=== PATIENT | female | born 1955 | race Caucasian/White ===

== ENCOUNTER → 2019-02-24 | Outpatient (CLI) | payer OTHER ==
[~2019-02-24] MED LIST: LEVSOD75 PO
== END | disposition home or self-care (01) ==
LOC: LAB SHORT 12:12 → PLD 12:12
DX: D48.5 Neoplasm of uncertain behavior of skin (principal)
CPT/HCPCS: 88305

== ENCOUNTER 2020-05-26 06:52 | Day surgery (SDC) | payer MEDICARE ==
[~2020-05-26] VITALS: Ht 165.1 cm; Wt 61.0 kg
[~2020-05-26 06:52] MED LIST changes: +ALORA1 EA11; +CONEST.625; +Estrace Vagin42.5 GM; +HYDACE10B
--- NOTE | 2020-05-26 08:37 | NUR ---
05/26/20 0837 Sridevi Hernández BUPIVACAINE 0.5% 30MLS MIXED W/ 0.15 ML EPI TO MAKE BUPIVACAINE 0.5% 1:200,[address] FREDERICK PER ORDER.
--- NOTE | 2020-05-26 10:19 | NUR ---
05/26/20 1019 Loren Hoffman PT C/O 01/12 PAIN IN LEFT WLBOW, HOWEVER PT ALSO EXPRESSES READINESS TO GO HOME. PT MEDICATED WITH PO PERCOCET AND IV FENTANYL PER ORDERS.
== END 2020-05-26 10:45 | disposition home or self-care (01) ==
LOC: ORSCSDS 06:52
PROVIDERS: Orthopaedic Surgery
PROC: 0JBF0ZZ Excision of Left Upper Arm Subcutaneous Tissue and Fascia, Open Approach (ICD-10-PCS; principal; 2020-05-26 08:15)
PROC: 0LN40ZZ Release Left Upper Arm Tendon, Open Approach (ICD-10-PCS; principal; 2020-05-26 08:15)
DX: M77.12 Lateral epicondylitis, left elbow (principal); M77.02 Medial epicondylitis, left elbow; E03.9 Hypothyroidism, unspecified; Z79.899 Other long term (current) drug therapy
CPT/HCPCS: A9270; J0171; J0690; J1100; J2250; J2405; J2704; J3010; J7120